=== PATIENT | female | born 1940 | race Asian ===

== ENCOUNTER 2024-06-14 13:54 | Emergency (ER) | payer MEDICAID, SELFPAY ==
[2024-06-14] VITALS (19 sets, daily range): BP systolic 126–171; BP diastolic 56–92; PULSE 76–100; RESP 15–201; TEMP 36.6–37.1; O2SAT 97–100; BMI 24.4; BMI 21.4
--- NOTE | 2024-06-14 14:29 | EKG_ITS ---
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
--- NOTE | 2024-06-14 14:30 | EDNOTE_ITS ---
ED Recheck Abnl Lab Rx-RME/HPI General Chief Complaint: Recheck/Abnormal Lab/Rx Stated Complaint: ABNORMAL LABS Time Seen by Provider: 06/14/24 14:32 Arrival date/time: 06/14/24 13:54 RME / HPI RME / HPI narrative: DR. CHRISTOPHER MAIN ED EVALUATION: 84 year old female with past medical history significant for CABG in 2010, hypertension, hyperlipidemia, constipation, arthritis, diabetes mellitus presents to the Emergency Department [facility] from [facility] for low hemoglobin. She is asymptomatic. Denies any diarrhea, constipation, nausea, vomiting, or abdominal pain. Denies any cough, chest pain, shortness of breath. Related Data Home Medications ?Medication ?Instructions ?Recorded ?Confirmed metoprolol tartrate 25 mg tablet 25 mg PO BID 08/17/17 09/12/23 simvastatin 40 mg tablet 40 mg PO HS 08/17/17 4 ascorbic acid (vitamin C) 1,000 mg 1 tab PO QDAY 08/1809/12/23 tablet (Vitamin C) cholecalciferol (vitamin D3) 25 1 tab PO QDAY 08/18/17 09/12/23 mcg (1,000 unit) capsule (Vitamin D3) lisinopril 20 mg tablet 20 mg PO QDAY 09/12/2309/11 Previous Rx's ?Medication ?Instructions ?Recorded pantoprazole 40 mg tablet,delayed 40 mg PO QDAY #30 ta bs 09/14/23 release (Protonix) sucralfate 1 gram tablet (Carafate) 1 g PO QID #120 ta bs 09/14/23 Allergies Allergy/AdvReac Type Severity Reaction Status Date / Time No Known Allergies Allergy Unverified 09/13/23 09:16 Review of Systems Review of Systems Systems Reviewed: All systems reviewed, normal except as documented Narrative Review of Systems: GEN: No fever, no chills, no weight loss EYES: No discharge, no visual changes, no pain HEENT: No ear pain, no congestion, no sore throat PULM: No shortness of breath, no cough, no congestion CV: No chest pain, no dyspnea on exertion, no palpitations GI: No nausea, no vomiting, no diarrhea, no pain, no constipation : No frequency, no urgency and no dysuria MUSC/SKEL: No joint pain, no back pain SKIN: No rash PSYCH: No hallucinations, no depression HEME/LYMPH: No easy bleeding or bruising tendencies NEURO: No weakness, no headache Past Medical History Past Medical History CARDIAC: Positive Cardiac Disorders, Coronary Artery Disease, Hypercholesterolemia and Hypertension MUSCULOSKELETAL: Positive Musculoskeletal Disorders ENT: Positive Cataracts Family History FAMILY HISTORY: Positive Family Cardiac Disorders Surgical History SURGICAL: Positive Coronary Artery Bypass Graft Social History SMOKING STATUS: Never smoker SUBSTANCE USE: does not use ALCOHOL: Never ED Exam Narrative Physical exam: GENERAL APPEARANCE: alert and oriented x 4, well-developed, well-nourished, no acute distress VITALS: All vitals were reviewed and the pulse ox is 97% on room air, which is normal according to my interpretation. 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 NEUROLOGIC: awake; alert and oriented x4; cranial nerves II-XII grossly intact; no focal sensory or motor deficits PSYCHIATRIC: appropriate mood and affect SKIN: warm, dry, normal color; no rashes Course Quality Measures none Orders Category Date Time Status EKG (ED ONLY) *Do not use* NOW Care 06/14/24 14:29 Completed Occult Blood,Stool (Nursing) NOW Care 06/14/24 15:19 Active Saline [Insert IV] NOW Care 06/14/24 19:02 Active Straight [In and Out Catheter] X1 Care 06/14/24 19:02 Active Transfuse,blood/blood products NOW Care 06/14/24 15:15 Active EKG (ED Only) Stat Exams 06/14/24 14:29 Draft B-Type Natriuretic Peptide Stat Lab 06/14/24 14:40 Completed CBC Stat Lab 06/14/24 14:40 Completed Comprehensive Metabolic Panel Stat Lab 06/14/24 14:40 Completed Hemoglobin and Hematocrit Stat Lab 06/14/24 23:37 Ordered Magnesium Stat Lab 06/14/24 14:40 Completed PT [Prothrombin Time with INR] Stat Lab 06/14/24 14:40 Completed PTT [Partial Thromboplastin Time] Stat Lab 06/14/24 14:40 Completed Path Review Blood Smear Stat Lab 06/14/24 14:40 Completed Red Blood Cells Stat Lab 06/14/24 14:40 Results Type and Screen Stat Lab 06/14/24 14:40 Results UA, C/S IF [Urinalysis, C/S if Indicated] Stat Lab 06/14/24 23:53 Completed Acetaminophen Tab [Tylenol Tab] Med 06/14/24 19:03 Discontinued 650 mg PO X1 ONE DiphenhydrAMINE INJ [Benadryl Inj] Med 06/14/24 19:03 Discontinued 25 mg IV X1 STA Magnesium Sulfate 2 GM Ivpb [Magnesium Sulfate Ivpb] Med 06/14/24 19:02 Discontinued 2 gm in 50 ml IV X1 MethylPREDNISolone. [SoluMEDROL Inj] Med 06/14/24 19:03 Discontinued 40 mg IVP X1 ONE Vital Signs Vital signs: Vital Signs Temperature 98.4 F 06/14/24 13:57 Pulse Rate 96 06/14/24 13:57 Respiratory Rate 15 06/14/24 13:57 Blood Pressure 130/57 L 06/14/24 13:57 Pulse Oximetry (%) 97 06/14/24 13:57 Oxygen Delivery Method Room Air 06/14/24 13:57 Procedures -ED EKG Interpretation #1: Date of EK06/14/24 Time of EK:48 Rate: 80 Interpretation: Interpreted by me Additional EKG comment: sinus rhythm, rate 80, Q waves in V1 and V2, no acute ischemic changes Recheck / Abnormal Lab / Rx MDM Narrative MDM Narrative:: IIvon am scribing for and in the presence of Dr. Christopher. Patient data External records reviewed:: [facility] previous records (Reviewed cardiology note by Dr. Cotter, dated 09/13/23.), EMS form and Custodial records Clinical information provided by:: patient and EMS Social determinants that could affect healthcare access:: housing ([facility] ) Patient has the following chronic illnesses:: CABG in 2010, hypertension, hyperlipidemia, constipation, arthritis, diabetes mellitus How is presenting disease/condition affected by chronic disease/condition?: exacerbated by Evaluation data The following diagnostics were reviewed and interpreted by me:: lab results and EKG tracing(s) (EKG#1: EKG at 1448 hours. Interpreted by me: sinus rhythm, rate 80, Q waves in V1 and V2, no acute ischemic changes) Lab and/or radiology exams considered but not ordered:: none Interpretation Summary: RBC 1.81 Hgb 6.0 Hct 19.3% Medications / Prescriptions Medications or Prescriptions considered but not ordered:: none Medication administrations:: Medication Administration History Discontinued Medications Acetaminophen (Acetaminophen 325 Mg Tablet) 650 mg PO X1 ONE Stop: 06/14/24 19:04 Last Admin: 06/14/24 19:58 Dose: 650 mg Documented By: LB Diphenhydramine HCl (Diphenhydramine Inj 50 Mg/Ml Vial) 25 mg IV X1 STA Stop: 06/14/24 19:04 Last Admin: 06/14/24 20:00 Dose: 25 mg Documented By: LB Magnesium Sulfate (Magnesium Sulfate Ivpb) 2 gm in 50 mls @ 25 mls/hr IV X1 ONE Stop: 06/14/24 21:01 Last Admin: 06/14/24 22:27 Dose: 25 mls/hr Documented By: LB Methylprednisolone Sodium Succinate (Methylprednisolone Sod Succ 40 Mg Vial) 40 mg IVP X1 ONE Stop: 06/14/24 19:04 Last Admin: 06/14/24 20:02 Dose: 40 mg Documented By: ALICIA see above if any Consultations Consultation(s) initiated? 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 transfusion.) Discharge Plan Plan Patient Disposition: HOME (Self Care) Prescriptions/Referrals Prescriptions/Med Rec: No Action simvastatin 40 mg Tablet 40 mg PO HS metoprolol tartrate 25 mg Tablet 25 mg PO BID ascorbic acid (vitamin C) [Vitamin C] 1,000 mg Tablet 1 tab PO QDAY cholecalciferol (vitamin D3) [Vitamin D3] 1,000 unit Capsule 1 tab PO QDAY lisinopril 20 mg tablet 20 mg PO QDAY Patient Comments: TAKE 1 TABLET BY MOUTH ONCE DAILY pantoprazole [Protonix] 40 mg tablet,delayed release (DR/EC) 40 mg PO QDAY Qty: 30 0RF sucralfate [Carafate] 1 gram tablet 1 g PO QID Qty: 120 0RF Referrals: Rebekah Pollock MD [Primary Care Provider] - In 1 week Problem List Clinical Impression: Severe anemia Patient/Caregiver Discharge Instructions Discharge Activity: activity as tolerated Education Materials: ED Anemia Type Not Specified Additional Instructions: Discharge Instructions from Dr. Rojas printed for you: Print Language: Honduran Stand Alone Forms: [employer]i Award Info., Patient Portal Info Letter
[2024-06-14 14:57] LABS: Basophils % (Auto) 0 % (0-2.5); Eosinophils # (Auto) 0.5 Thou/mm3 (0.0-0.5); Eosinophils % (Auto) 7 % (0-10); Immature Granulocytes % (Auto) 1 % (0-0); Immature Granulocytes Auto 0.04 Thou/mm3 (0.00-0.00); Lymphocytes % (Auto) 15 % (10-50); Mean Corpuscular HGB Conc 31.1 g/dl (31.0-37.0); Mean Corpuscular Hemoglobin 33.1 pg (25.0-35.0); Mean Corpuscular Volume 107 fL (80-100); Monocytes # (Auto) 0.6 Thou/mm3 (0.0-0.8); Monocytes % (Auto) 9 % (0-12); Neutrophils # (Auto) 4.5 Thou/mm3 (1.8-7.7); Neutrophils % (Auto) 68 % (37-80); Nucleated Red Blood Cell % 0 /100 WBC (0); Platelet Count 365 Thou/mm3 (140-440); RDW Standard Deviation 60.4 fL (36.4-46.3); Red Blood Count 1.81 Miln/mm3 (4.00-5.20); White Blood Count 6.6 Thou/mm3 (3.6-11.0)
[2024-06-14 15:15] LABS: Hematocrit 19.3 % (36.0-46.0)
[2024-06-14 15:27] LABS: Partial Thromboplastin Time 25.7 Seconds (22.0-36.0); Path Review Blood Smear Sent to Pathologist; Prothrombin Time 11.2 Seconds (9.0-12.2)
[2024-06-14 15:30] LABS: Alanine Aminotransferase 23 U/L (10-49); Albumin, Serum 3.2 gm/dL (3.4-4.8); Albumin/Globulin Ratio 1.2 (1.2-2.2); Alkaline Phosphatase 134 U/L (46-116); Anion Gap 8 (7-16); Aspartate Amino Transferase 30 U/L (0-34); BUN/Creatinine Ratio 15 Ratio (12-20); Bilirubin,Total 0.3 mg/dL (0.3-1.2); Blood Urea Nitrogen 19 mg/dL (9-23); Calcium 8.2 mg/dL (8.3-10.6); Calcium (Corrected) 8.8 mg/dL (8.5-10.1); Chloride 111 mMol/L (98-107); Creatinine (Component) 1.3 mg/dL (0.6-1.3); Estimated Creatinine Clearance 23.1 mL/min (>60); Globulin 2.6 gm/dL (2.3-3.5); Glucose 139 mg/dL (74-106); Magnesium 1.3 mg/dL (1.6-2.6); Osmolality,Calculated 283 (275-295); Potassium 4.7 mMol/L (3.4-5.1); Sodium 140 mMol/L (136-145); Total Protein 5.8 gm/dL (5.7-8.2); eGFR 41 See Note
[2024-06-14 15:34] LABS: B-Type Natriuretic Peptide 716 pg/mL (0-100)
--- NOTE | 2024-06-14 18:12 | PD.EDADDENDU ---
Emergency Room Addendum <Teresita Gonzalez - Last Filed: 06/15/24 01:16> Addendum Narrative: I took over the care from Dr. Christopher at 6 PM on 06/14/2024, see her notes for complete H&P and ED course. I reviewed all diagnostic test results. Discharge Instructions from Dr. Rojas printed for you: 1. You were given blood transfusion for severely low red blood cell count. 2. And IV magnesium for low magnesium level. 3. See a private doctor on 06/17/2024 for recheck and further care. Ask to review all test results and official radiology reports, to make sure you receive all necessary follow-ups and monitoring, including rechecking magnesium level and red blood cell count. Ask for help to find the cause of the severely low red blood cell count today. 4. Seek immediate medical care with chest pain, feeling faint, severe fatigue, or with any concerns. <Boyd Rojas MD - Last Filed: 06/15/24 02:20> Addendum Narrative: I took over the care from Dr. Christopher at 6 PM on 06/14/2024, see her notes for complete H&P and ED course. I reviewed all diagnostic test results. At this point, diagnoses include: Severe anemia (Hgb 6) and Hypomagnesemia. Patient had no symptoms. No chest pain. No hematemesis or coffee-ground emesis. No abdominal pain. No rectal bleeding or tarry stools. Treatment here included: Transfusion of pRBC (3 units) with Solu-Medrol 40 mg IV and Benadryl 25 mg IV and oral Tylenol 650 mg and MgSO4 2 gram IV. Hemoglobin improved significantly. Recommended more outpatient workup. Based on my best medical judgment, made decision no further evaluation or treatment indicated at this time.? Patient understands and agrees to the discharge instructions customized and printed, see below. Discharge Instructions from Dr. Rojas printed for you: 1. You were given blood transfusion for severely low red blood cell count. 2. And IV magnesium for low magnesium level. 3. See a private doctor on 06/17/2024 for recheck and further care. Ask to review all test results and official radiology reports, to make sure you receive all necessary follow-ups and monitoring, including rechecking magnesium level and red blood cell count. Ask for help to find the cause of the severely low red blood cell count today. 4. Seek immediate medical care with chest pain, feeling faint, severe fatigue, or with any concerns.
[2024-06-14] MEDS: ACETAMINOPHEN 325 MG TABLET 650 MG PO (19:58)
[2024-06-14] MEDS: DiphenhydrAMINE INJ 50 MG/ML VIAL 25 MG IV (20:00)
[2024-06-14] MEDS: Magnesium Sulfate 2 GM Ivpb 2 GM/50 ML BAG IV (22:27)
[2024-06-14 23:54] LABS: Collection Type, Urine Clean Catch; Squamous Epithelial Cell,Urine 0 /hpf (0-5)
[2024-06-15 00:02] LABS: Bilirubin,Urine Negative (Negative); Blood,Urine Negative (Negative); Clarity,Urine Clear (Clear/Hazy); Color,Urine Lt-Yellow (Lt Yel-Yel); Culture Indicated,Urine Not Indicated; Glucose, Urine Negative (Negative); Ketones,Urine Negative (Negative); Leukocyte Esterase,Urine Negative (Negative); Nitrite,Urine Negative (Negative); Protein,Urine Negative (Neg - Trace); RBC,Urine < 1 /hpf (0-3); Specific Gravity,Urine 1.016 (1.001-1.035); Urobilinogen,Urine Negative mg/dL (0.0-1.0); WBC,Urine < 1 /hpf (0-5)
[2024-06-15 00:43] VITALS: BP 161/84; PULSE 84; RESP 18; TEMP 36.6; O2SAT 99
[2024-06-15 02:00] VITALS: BP 155/78; PULSE 80; TEMP 36.6; O2SAT 99
[2024-06-15 02:05] LABS: Hematocrit 39.9 % (36.0-46.0); Hemoglobin 13.4 g/dL (12.0-16.0)
== END 2024-06-15 02:27 | disposition home or self-care (01) ==
PROVIDERS: Emergency Medicine; Emergency Provider Emergency Medicine; PCP Hospitalist
DX: D64.9 Anemia, unspecified (principal); I49.1 Atrial premature depolarization; I10 Essential (primary) hypertension; E78.00 Pure hypercholesterolemia, unspecified; I25.10 Atherosclerotic heart disease of native coronary artery without angina pectoris; Z95.1 Presence of aortocoronary bypass graft
CPT/HCPCS: 36415; 36430; 80053; 81001; 83735; 83880; 85014; 85018; 85025; 85610; 85730; 86850; 86900; 86901; 86923; 93005; 96365; 96366; 96375; 99285; J1200; J2919; J3475; P9016; A9270